=== PATIENT | female | born 1995 | race Caucasian/White ===

== ENCOUNTER 2022-04-14 10:04 | Emergency (ER) | payer OTHER ==
[~2022-04-14] VITALS: Ht 162.6 cm; Wt 59.1 kg
[2022-04-14 10:21] VITALS: BP 114/60
[2022-04-14] MEDS ORDERED: PERTUSS(ACELL),DIPH,TET VAC/PF 0.5 ML SYRINGE IM. ONE (10:30)
== END 2022-04-14 11:39 | disposition home or self-care (01) ==
LOC: EMS 10:13
DX: S61.218A Laceration without foreign body of other finger without damage to nail, initial encounter (principal); Z23 Encounter for immunization; Z88.0 Allergy status to penicillin; W26.0XXA Contact with knife, initial encounter; Y93.89 Activity, other specified; Y92.89 Other specified places as the place of occurrence of the external cause; Y99.8 Other external cause status
CPT/HCPCS: 90471; 90715; 99283

== ENCOUNTER 2022-08-20 15:06 | Emergency (ER) | payer OTHER ==
[~2022-08-20] VITALS: Ht 162.6 cm; Wt 55.4 kg
[2022-08-20 15:21] VITALS: BP 112/81
== END 2022-08-20 21:12 | disposition home or self-care (01) ==
LOC: EMS 15:11
DX: S03.42XA Sprain of jaw, left side, initial encounter (principal); S00.83XA Contusion of other part of head, initial encounter; M26.602 Left temporomandibular joint disorder, unspecified; Z88.0 Allergy status to penicillin; Z90.89 Acquired absence of other organs; X58.XXXA Exposure to other specified factors, initial encounter; Y93.89 Activity, other specified; Y92.89 Other specified places as the place of occurrence of the external cause; Y99.8 Other external cause status
CPT/HCPCS: 70100; 70330; 99284; Z7502